=== PATIENT | female | born 1995 | race American Indian/Alaskan Native ===

== ENCOUNTER 2019-05-31 16:52 | Emergency (ER) | payer SELFPAY ==
--- NOTE | 2019-05-31 17:20 | Emergency Department Report ---
Blank Doc - Documentation Documentation: This is a 23-year-old female that presents with dysuria and pelvic pain. This initial assessment/diagnostic orders/clinical plan/treatment(s) is/are subject to change based on patient's health status, clinical progression and re- assessment by fellow clinical providers in the ED. Further treatment and workup at subsequent clinical providers discretion. Patient/guardians urged not to elope from the ED as their condition may be serious if not clinically assessed and managed. Initial orders include: 1- Patient sent to [facility] for further evaluation and treatment 2- UA
[2019-05-31 17:24] VITALS: BP 119/83
[2019-05-31 18:36] LABS: HCG Qualitative,Urine Negative (Negative)
[2019-05-31 18:43] LABS: Bilirubin,Urine NEG (Negative); Blood,Urine NEG (Negative); Color,Urine Straw (Yellow); Protein,Urine <15 mg/dL mg/dL (Negative); Urobilinogen,Urine < 2.0 mg/dL (<2.0)
[2019-05-31] MEDS ORDERED: ROCEPHIN IM ONE (19:56)
[2019-05-31] MEDS ORDERED: XYLOCAINE 1% MPF 5 mL INFILTRATI ONE (19:56)
[2019-05-31] MEDS ORDERED: TORADOL PO ONE (19:56)
[2019-05-31] MEDS ORDERED: ZOFRAN ODT PO ONE (19:57)
--- NOTE | 2019-05-31 20:23 | Emergency Department Report ---
ED Female HPI - General Chief complaint: Urogenital-Female Stated complaint: POSS KIDNEY INFECTION Time Seen by Provider: 05/31/19 17:19 Source: patient Mode of arrival: Ambulatory Limitations: No Limitations - History of Present Illness Initial comments: Patient is a A0 23-year-old female with chronic recurrent urinary tract infections presents to the ED with complaint of acute onset persistent dysuria, urinary frequency and urgency, hematuria, bilateral flank pain that radiates to the lower abdomen and nausea for the last 4 days. Patient denies fever, chills, vomiting, diarrhea, vaginal bleeding, vaginal discharge, dizziness, cough, chest pain or shortness of breath. Patient states that she has been taking [id number] medications with no relief. MD Complaint: dysuria, pelvic pain, other (Urinary urgency and frequency; bilateral flank pain) -: Sudden, days(s) (4) Location: suprapubic Radiation: suprapubic, L flank, R flank Severity: moderate Severity scale (0 -10): 6 Quality: cramping, sharp, aching Consistency: constant Improves with: none Worsens with: urination Are you Now?: No Last Menstrual Period: 05/25/19 EDC: 02/29/20 Associated Symptoms: denies other symptoms, abdominal pain, dysuria, hematuria. denies: vaginal discharge, vaginal bleeding, nausea/vomiting, fever/chills, headaches, loss of appetite, rash, seizure, shortness of breath, syncope, weakness, other - Related Data Sexually active: Yes : 2 Para: 2 A: 0 Previous Rx's Medication Instructions Recorded Last Taken Type Ibuprofen [Motrin] 400 mg PO Q8H PRN #20 tablet 05/31/19 Unknown Rx Ondansetron [Zofran Odt] 4 mg PO Q6HR PRN #15 tab.rapdis 05/31/19 Unknown Rx Sulfamethoxazole/Trimethoprim 1 each PO Q12H #20 tablet 05/31/19 Unknown Rx [Bactrim DS TAB] Allergies Allergy/AdvReac Type Severity Reaction Status Date / Time No Known Allergies Allergy Unverified 05/31/19 16:54 ED Review of Systems ROS: Stated complaint: POSS KIDNEY INFECTION Other details as noted in HPI Comment: All other systems reviewed and negative Constitutional: denies: chills, fever Eyes: denies: eye pain, eye discharge, vision change ENT: denies: ear pain, throat pain Respiratory: denies: cough, shortness of breath, wheezing Cardiovascular: denies: chest pain, palpitations Endocrine: no symptoms reported Gastrointestinal: abdominal pain (suprapubic and bilateral flank pains). denies: nausea, vomiting, diarrhea, constipation, hematemesis, hematochezia Genitourinary: urgency, dysuria, frequency, hematuria. denies: discharge, abnormal menses, dyspareunia Musculoskeletal: denies: back pain, joint swelling, arthralgia Skin: denies: rash, lesions Neurological: denies: headache, weakness, paresthesias Psychiatric: denies: anxiety, depression Hematological/Lymphatic: denies: easy bleeding, easy bruising ED Past Medical Hx - Past Medical History Previous Medical History?: No - Surgical History Past Surgical History?: No - Social History Smoking Status: Never Smoker Substance Use Type: None - Medications Home Medications: Home Medications Medication Instructions Recorded Confirmed Last Taken Type Ibuprofen [Motrin] 400 mg PO Q8H PRN #20 tablet 05/31/19 Unknown Rx Ondansetron [Zofran Odt] 4 mg PO Q6HR PRN #15 tab.rapdis 05/31/19 Unknown Rx Sulfamethoxazole/Trimethoprim 1 each PO Q12H #20 tablet 05/31/19 Unknown Rx [Bactrim DS TAB] ED Physical Exam - General Limitations: No Limitations General appearance: alert, in no apparent distress - Head Head exam: Present: atraumatic, normocephalic, normal inspection - Eye Eye exam: Present: normal appearance, PERRL, EOMI. Absent: scleral icterus, conjunctival injection, nystagmus, periorbital swelling, periorbital tenderness Pupils: Present: normal accommodation - ENT ENT exam: Present: normal exam, normal orophraynx, mucous membranes moist, TM's normal bilaterally, normal external ear exam - Neck Neck exam: Present: normal inspection, full ROM. Absent: tenderness, lymphadenopathy - Respiratory Respiratory exam: Present: normal lung sounds bilaterally. Absent: respiratory distress, wheezes, rales, stridor, chest wall tenderness, accessory muscle use, decreased breath sounds, prolonged expiratory - Cardiovascular Cardiovascular Exam: Present: regular rate, normal rhythm, normal heart sounds. Absent: systolic murmur, diastolic murmur, rubs, gallop - GI/Abdominal GI/Abdominal exam: Present: soft, tenderness (mildly tender suprapubic and bilateral flanks), normal bowel sounds. Absent: hyperactive bowel sounds, hypoactive bowel sounds, organomegaly, mass - Rectal Rectal exam: Present: deferred - Extremities Exam Extremities exam: Present: normal inspection, full ROM, normal capillary refill - Back Exam Back exam: Present: normal inspection, full ROM. Absent: tenderness, CVA tenderness (R), CVA tenderness (L), muscle spasm - Neurological Exam Neurological exam: Present: alert, oriented X3, CN II-XII intact, normal gait, reflexes normal - Psychiatric Psychiatric exam: Present: normal affect, normal mood - Skin Skin exam: Present: warm, dry, intact, normal color. Absent: rash ED Course Vital Signs 05/31/19 17:21 Temperature 98.5 F Pulse Rate 88 Respiratory 18 Rate Blood Pressure 119/83 O2 Sat by Pulse 100 Oximetry - Reevaluation(s) Reevaluation #1: 05/31/19 20:29 This is a 23-year-old female who presented to the ED with symptoms of dysuria, urinary frequency and urgency, hematuria and bilateral flank pain consistent with acute urinary tract infection. Patient is alert and oriented 3 and is not in distress with normal vital signs. Urinalysis shows acute urinary tract infection. The patient was treated in the ED Rocephin on pain medications, and discharged home on medications including antibiotics and pain medicines. Patient was advised to drink plenty of fluids and follow-up with [facility] [employer] physician or primary care physician in 7-10 days for reevaluation or return to the ED immediately if symptoms get worse. ED Medical Decision Making - Medical Decision Making This is a 23-year-old female who presented to the ED with symptoms of dysuria, urinary frequency and urgency, hematuria and bilateral flank pain consistent with acute urinary tract infection. Patient is alert and oriented 3 and is not in distress with normal vital signs. Urinalysis shows acute urinary tract infection. The patient was treated in the ED Rocephin on pain medications, and discharged home on medications including antibiotics and pain medicines. Patient was advised to drink plenty of fluids and follow-up with [facility] [employer] physician or primary care physician in 7-10 days for reevaluation or return to the ED immediately if symptoms get worse. - Differential Diagnosis Bilateral flank pains; Suprapubic pain; Acute UTI; Dysuria; Critical care attestation.: If time is entered above; I have spent that time in minutes in the direct care of this critically ill patient, excluding procedure time. ED Disposition Clinical Impression: Acute urinary tract infection, Bilateral flank pain Disposition: TO HOME OR SELFCARE Is pt being admited?: No Does the pt Need Aspirin: No Condition: Stable Instructions: Urinary Tract Infection in Women (ED), Flank Pain (ED) Additional Instructions: Take medications with food, drink plenty of fluids and follow-up with your primary care physician or [facility] physician in 7-10 days for reevaluation. Return to the ED immediately if symptoms get worse. Prescriptions: Sulfamethoxazole/Trimethoprim [Bactrim DS TAB] 1 each PO Q12H #20 tablet Ibuprofen [Motrin] 400 mg PO Q8H PRN #20 tablet PRN Reason: Pain , Severe (7-10) Ondansetron [Zofran Odt] 4 mg PO Q6HR PRN #15 tab.rapdis PRN Reason: Nausea Referrals: [facility] [Outside] - 3-5 Days Forms: Work/School Release Form(ED) Time of Disposition: 20:20 Print Language: MALTESE
== END 2019-05-31 20:45 | disposition home or self-care (01) ==
LOC: ED 16:52
DX: N39.0 Urinary tract infection, site not specified (principal)
CPT/HCPCS: 81001; 81025; 87086; 96372; 99283; J0696; Q0162

== ENCOUNTER 2022-03-09 03:15 | Emergency (ER) | payer MEDICAID ==
[2022-03-09] MEDS ORDERED: SODIUM CHLORIDE 0.9% 1000 ML 1,000 ML IV ONE (03:29)
[2022-03-09] MEDS ORDERED: methylPREDNISolone Sod Succinate 125 MG/2 ML INJ IV ONE (03:29)
[2022-03-09] MEDS ORDERED: diphenhydrAMINE 50 MG/ML VIAL IV ONE (03:29)
[2022-03-09] MEDS ORDERED: FAMOTIDINE 20 MG/2 ML INJ IV ONE (03:30)
[2022-03-09] MEDS ORDERED: EPINEPHrine/PF 1 MG/1 ML INJ IM STA ×2 (03:32→03:44)
[2022-03-09] MEDS ORDERED: EPINEPHrine RACEMIC 2.25% 0.5ML NEBU IH ONE ×2 (03:33→03:45)
--- NOTE | 2022-03-09 05:20 | Emergency Department Report ---
<DELTA BAILEY - Last Filed: 03/09/22 10:56> ED General Adult HPI - General Chief complaint: Allergic Reaction Stated complaint: ALLERGIC RX/LIP SWELLING Time Seen by Provider: 03/09/22 03:32 - Related Data Previous Rx's Medication Instructions Recorded Last Taken Type Ibuprofen [Motrin] 400 mg PO Q8H PRN #20 tablet 05/31/19 Unknown Rx Ondansetron [Zofran Odt] 4 mg PO Q6HR PRN #15 tab.rapdis 05/31/19 Unknown Rx Sulfamethoxazole/Trimethoprim 1 each PO Q12H #20 tablet 05/31/19 Unknown Rx [Bactrim DS TAB] EPINEPHrine [Epipen] 0.3 mg IJ ONCE PRN 1 Days #1 pack 03/09/22 Unknown Rx Loratadine 1 tab PO DAILY 5 Days #5 03/09/22 Unknown Rx predniSONE [Deltasone] 2 tab PO QDAY 5 Days #10 tab 03/09/22 Unknown Rx Allergies Allergy/AdvReac Type Severity Reaction Status Date / Time No Known Allergies Allergy Unverified 05/31/19 16:54 ED Past Medical Hx - Medications Home Medications: Home Medications Medication Instructions Recorded Confirmed Last Taken Type Ibuprofen [Motrin] 400 mg PO Q8H PRN #20 tablet 05/31/19 Unknown Rx Ondansetron [Zofran Odt] 4 mg PO Q6HR PRN #15 tab.rapdis 05/31/19 Unknown Rx Sulfamethoxazole/Trimethoprim 1 each PO Q12H #20 tablet 05/31/19 Unknown Rx [Bactrim DS TAB] EPINEPHrine [Epipen] 0.3 mg IJ ONCE PRN 1 Days #1 pack 03/09/22 Unknown Rx Loratadine 1 tab PO DAILY 5 Days #5 03/09/22 Unknown Rx predniSONE [Deltasone] 2 tab PO QDAY 5 Days #10 tab 03/09/22 Unknown Rx ED Medical Decision Making - Medical Decision Making Patient observed in the ER for approximately 6-hour after treatment. Patient stated that she is feeling much better. No lip swelling or tongue swelling. No oropharyngeal swelling. Patient denies any difficulty swallowing or difficulty breathing. No stridor. Patient advised to follow-up with her primary care physician in the next 2 to 3 days and to return to the ER if she develop any new symptoms. ED Disposition Clinical Impression: Angioedema Disposition: HOME / SELF CARE / HOMELESS Is pt being admited?: No Condition: Stable Instructions: Angioedema, [id number] Additional Instructions: Follow up with your regular doctor within 2-4 days. Return to the ER if your symptoms worsen Prescriptions: predniSONE [Deltasone] 2 tab PO QDAY 5 Days #10 tab EPINEPHrine [Epipen] 0.3 mg IJ ONCE PRN 1 Days #1 pack PRN Reason: Allergic Reaction Loratadine 1 tab PO DAILY 5 Days #5 Referrals: SADIE QUIROZ MD [Primary Care Provider] - 3-5 Days <SAMAN OLIVIA U - Last Filed: 03/11/22 20:02> ED General Adult HPI - General Source: patient Mode of arrival: Ambulatory Limitations: No Limitations - History of Present Illness Initial comments: patient presents with complaints of swelling in her lips and tongue since 10 pm. Endorses difficulty swallowing. Denies SOB, rash. Started after she ate some shrimp. does not have a known hx of allergy to shrimp. Severity scale (0 -10): 0 ED Review of Systems ROS: Stated complaint: ALLERGIC RX/LIP SWELLING Other details as noted in HPI Comment: All other systems reviewed and negative Constitutional: denies: chills, fever ED Past Medical Hx - Past Medical History Previous Medical History?: No - Surgical History Past Surgical History?: No - Social History Smoking Status: Never Smoker Substance Use Type: None ED Physical Exam - General Limitations: No Limitations General appearance: alert, in no apparent distress - Head Head exam: Present: atraumatic, normocephalic - Eye Eye exam: Present: PERRL, EOMI, other (no eyelid edema) - ENT ENT exam: Present: other (edema of lower lip, tongue and uvula) - Neck Neck exam: Present: other (supple; inspiratory stridor present) - Respiratory Respiratory exam: Present: other (good air entry, nml I:E, inspiratory stridor, no use of accessory muscles of respiration) - Cardiovascular Cardiovascular Exam: Present: regular rate. Absent: rubs, gallop - GI/Abdominal GI/Abdominal exam: Present: soft, normal bowel sounds. Absent: distended, tenderness - Extremities Exam Extremities exam: Present: full ROM. Absent: tenderness - Back Exam Back exam: Present: full ROM. Absent: tenderness - Neurological Exam Neurological exam: Present: alert, oriented X3, CN II-XII intact. Absent: motor sensory deficit - Skin Skin exam: Present: warm. Absent: rash ED Course Vital Signs 03/09/22 03/09/22 03/09/22 03:18 03:43 03:45 Temperature 99.1 F Pulse Rate 83 79 93 H Pulse Rate [ Anterior] Respiratory 18 12 14 Rate Respiratory Rate [Anterior] Blood Pressure 122/79 138/82 Blood Pressure [Right] O2 Sat by Pulse 100 100 Oximetry 03/09/22 03/09/22 03/09/22 03:47 03:51 03:59 Temperature Pulse Rate 85 Pulse Rate [ 94 H Anterior] Respiratory 16 Rate Respiratory 16 Rate [Anterior] Blood Pressure Blood Pressure 136/91 [Right] O2 Sat by Pulse 96 98 Oximetry 03/09/22 03/09/22 03/09/22 04:00 04:16 04:30 Temperature Pulse Rate 77 75 78 Pulse Rate [ Anterior] Respiratory 14 19 18 Rate Respiratory Rate [Anterior] Blood Pressure 136/91 136/91 126/81 Blood Pressure [Right] O2 Sat by Pulse 100 100 100 Oximetry 03/09/22 03/09/22 03/09/22 04:46 05:00 05:16 Temperature Pulse Rate 78 76 72 Pulse Rate [ Anterior] Respiratory 18 16 16 Rate Respiratory Rate [Anterior] Blood Pressure 126/81 132/77 132/77 Blood Pressure [Right] O2 Sat by Pulse 100 100 99 Oximetry 03/09/22 03/09/22 03/09/22 05:30 05:46 06:00 Temperature Pulse Rate 72 76 87 Pulse Rate [ Anterior] Respiratory 15 15 16 Rate Respiratory Rate [Anterior] Blood Pressure 120/87 120/87 117/76 Blood Pressure [Right] O2 Sat by Pulse 99 100 99 Oximetry 03/09/22 03/09/22 03/09/22 06:16 06:30 06:46 Temperature Pulse Rate 75 74 85 Pulse Rate [ Anterior] Respiratory 14 16 15 Rate Respiratory Rate [Anterior] Blood Pressure 117/76 115/80 115/80 Blood Pressure [Right] O2 Sat by Pulse 100 99 100 Oximetry 03/09/22 03/09/22 03/09/22 07:00 07:30 08:00 Temperature Pulse Rate 83 87 73 Pulse Rate [ Anterior] Respiratory 15 17 16 Rate Respiratory Rate [Anterior] Blood Pressure 113/80 118/78 122/84 Blood Pressure [Right] O2 Sat by Pulse 99 100 100 Oximetry 03/09/22 08:30 Temperature Pulse Rate 74 Pulse Rate [ Anterior] Respiratory 15 Rate Respiratory Rate [Anterior] Blood Pressure 127/76 Blood Pressure [Right] O2 Sat by Pulse 99 Oximetry ED Medical Decision Making - Medical Decision Making Received epi 0.3 mg IM x 2, racemic epi x 2, solumedrol 125 mg IV x 1, benadryl 50 mg IV x 1, famotidine 20 mg IV x 1 Lip swelling resolved. No tongue or posterior orpharyngeal edema 3 hours after meds. Lungs with good air entry, nml I:E, CTAB, no use of SARAH. Critical care attestation.: If time is entered above; I have spent that time in minutes in the direct care of this critically ill patient, excluding procedure time. ED Disposition Is pt being admited?: No Does the pt Need Aspirin: No
[2022-03-09 11:38] VITALS: BP 127/76
== END 2022-03-09 08:00 | disposition home or self-care (01) ==
LOC: ED 03:15
DX: T78.1XXA Other adverse food reactions, not elsewhere classified, initial encounter (principal); R22.9 Localized swelling, mass and lump, unspecified; X58.XXXA Exposure to other specified factors, initial encounter
CPT/HCPCS: 94640; 96361; 96372; 96374; 96375; 99283; J0171; J1200; J2930; J3490; J7030; 94644

== ENCOUNTER 2022-04-26 01:44 | Emergency (ER) | payer MEDICAID ==
[2022-04-26] MEDS ORDERED: EPINEPHrine/PF 1 MG/1 ML INJ SUB-Q ONE (02:00)
[2022-04-26] MEDS ORDERED: SODIUM CHLORIDE 0.9% 1000 ML 1,000 ML IV ONE (02:00)
[2022-04-26] MEDS ORDERED: methylPREDNISolone Sod Succinate 125 MG/2 ML INJ IV STA (02:00)
[2022-04-26] MEDS ORDERED: FAMOTIDINE 20 MG/2 ML INJ IV ONE (02:00)
[2022-04-26] MEDS ORDERED: diphenhydrAMINE 50 MG/ML VIAL IV ONE (02:00)
--- NOTE | 2022-04-26 02:02 | Emergency Department Report ---
HPI - General Chief Complaint: Allergic Reaction Time Seen by Provider: 04/26/22 02:00 - HPI HPI: See THE other dictation ED Past Medical Hx - Social History Smoking Status: Never Smoker Substance Use Type: None - Medications Home Medications: Home Medications Medication Instructions Recorded Confirmed Last Taken Type Ibuprofen [Motrin] 400 mg PO Q8H PRN #20 tablet 05/31/19 Unknown Rx Ondansetron [Zofran Odt] 4 mg PO Q6HR PRN #15 tab.rapdis 05/31/19 Unknown Rx Sulfamethoxazole/Trimethoprim 1 each PO Q12H #20 tablet 05/31/19 Unknown Rx [Bactrim DS TAB] EPINEPHrine [Epipen] 0.3 mg IJ ONCE PRN 1 Days #1 pack 03/09/22 Unknown Rx Loratadine 1 tab PO DAILY 5 Days #5 03/09/22 Unknown Rx predniSONE [Deltasone] 2 tab PO QDAY 5 Days #10 tab 03/09/22 Unknown Rx Albuterol Mdi (or & Nicu Only) 2 puff IH QID PRN #1 inhalation 04/26/22 Unknown Rx [ProAir HFA Inhaler] EPINEPHrine [Epipen 2-Kenrick] 0.3 mg IM ONCE #2 pen 04/26/22 Unknown Rx hydrOXYzine HCL [Atarax] 25 mg PO Q6HR PRN #20 tablet 04/26/22 Unknown Rx predniSONE [Deltasone] 50 mg PO QDAY #5 tab 04/26/22 Unknown Rx ED Review of Systems ROS: Stated complaint: ALLERGIC REACTION Other details as noted in HPI Physical Exam - Physical Exam Vital Signs: Vital Signs 04/26/22 01:47 Temperature 98.0 F Pulse Rate 77 Respiratory 18 Rate Blood Pressure 127/77 O2 Sat by Pulse 99 Oximetry ED Course Vital Signs 04/26/22 01:47 Temperature 98.0 F Pulse Rate 77 Respiratory 18 Rate Blood Pressure 127/77 O2 Sat by Pulse 99 Oximetry Critical care attestation.: If time is entered above; I have spent that time in minutes in the direct care of this critically ill patient, excluding procedure time. ED Disposition Clinical Impression: Allergic reaction, Angio-edema Disposition: 01 HOME / SELF CARE / HOMELESS Is pt being admited?: No Does the pt Need Aspirin: No Condition: Stable Instructions: Angioedema, [id number], Angioedema, How to Use an Auto-Injector Pen Additional Instructions: Please be sure to follow-up with an residential life director as we discussed can be tested to follow-up on these frequent recurrent allergy reactions you have been experiencing Prescriptions: hydrOXYzine HCL [Atarax] 25 mg PO Q6HR PRN #20 tablet PRN Reason: Itching predniSONE [Deltasone] 50 mg PO QDAY #5 tab EPINEPHrine [Epipen 2-Kenrick] 0.3 mg IM ONCE #2 pen Albuterol Mdi (or & Nicu Only) [ProAir HFA Inhaler] 2 puff IH QID PRN #1 inhalation PRN Reason: Shortness Of Breath Referrals: SADIE QUIROZ MD [Primary Care Provider] - 3-5 Days
--- NOTE | 2022-04-26 02:03 | Emergency Department Report ---
ED Allergic Reaction HPI - General Chief complaint: Allergic Reaction Stated complaint: ALLERGIC REACTION Time Seen by Provider: 04/26/22 02:00 Source: patient Mode of arrival: Ambulatory Limitations: No Limitations - History of Present Illness MD Complaint: allergic reaction, hives -: Sudden, hour(s) (2 after eating a [employer] steak meal preapacked) Severity: moderate Treatment Prior to Arrival: none Previous Allergy History: prior ED visit(s), angioedema - Related Data Previous Rx's Medication Instructions Recorded Last Taken Type Ibuprofen [Motrin] 400 mg PO Q8H PRN #20 tablet 05/31/19 Unknown Rx Ondansetron [Zofran Odt] 4 mg PO Q6HR PRN #15 tab.rapdis 05/31/19 Unknown Rx Sulfamethoxazole/Trimethoprim 1 each PO Q12H #20 tablet 05/31/19 Unknown Rx [Bactrim DS TAB] EPINEPHrine [Epipen] 0.3 mg IJ ONCE PRN 1 Days #1 pack 03/09/22 Unknown Rx Loratadine 1 tab PO DAILY 5 Days #5 03/09/22 Unknown Rx predniSONE [Deltasone] 2 tab PO QDAY 5 Days #10 tab 03/09/22 Unknown Rx Albuterol Mdi (or & Nicu Only) 2 puff IH QID PRN #1 inhalation 04/26/22 Unknown Rx [ProAir HFA Inhaler] EPINEPHrine [Epipen 2-Kenrick] 0.3 mg IM ONCE #2 pen 04/26/22 Unknown Rx hydrOXYzine HCL [Atarax] 25 mg PO Q6HR PRN #20 tablet 04/26/22 Unknown Rx predniSONE [Deltasone] 50 mg PO QDAY #5 tab 04/26/22 Unknown Rx Allergies Allergy/AdvReac Type Severity Reaction Status Date / Time No Known Allergies Allergy Unverified 05/31/19 16:54 ED Review of Systems ROS: Stated complaint: ALLERGIC REACTION Other details as noted in HPI Comment: All other systems reviewed and negative ED Past Medical Hx - Social History Smoking Status: Never Smoker Substance Use Type: None - Medications Home Medications: Home Medications Medication Instructions Recorded Confirmed Last Taken Type Ibuprofen [Motrin] 400 mg PO Q8H PRN #20 tablet 05/31/19 Unknown Rx Ondansetron [Zofran Odt] 4 mg PO Q6HR PRN #15 tab.rapdis 05/31/19 Unknown Rx Sulfamethoxazole/Trimethoprim 1 each PO Q12H #20 tablet 05/31/19 Unknown Rx [Bactrim DS TAB] EPINEPHrine [Epipen] 0.3 mg IJ ONCE PRN 1 Days #1 pack 03/09/22 Unknown Rx Loratadine 1 tab PO DAILY 5 Days #5 03/09/22 Unknown Rx predniSONE [Deltasone] 2 tab PO QDAY 5 Days #10 tab 03/09/22 Unknown Rx Albuterol Mdi (or & Nicu Only) 2 puff IH QID PRN #1 inhalation 04/26/22 Unknown Rx [ProAir HFA Inhaler] EPINEPHrine [Epipen 2-Kenrick] 0.3 mg IM ONCE #2 pen 04/26/22 Unknown Rx hydrOXYzine HCL [Atarax] 25 mg PO Q6HR PRN #20 tablet 04/26/22 Unknown Rx predniSONE [Deltasone] 50 mg PO QDAY #5 tab 04/26/22 Unknown Rx ED Physical Exam - General Limitations: No Limitations General appearance: alert, in no apparent distress - Head Head exam: Present: atraumatic, normocephalic - Eye Eye exam: Present: normal appearance, PERRL, EOMI - ENT ENT exam: Present: normal exam, mucous membranes moist, TM's normal bilaterally, other (Swelling to the lips. Tongue appears to be of normal variant no droo ling. Voice appears to be normal no stridor) - Neck Neck exam: Present: normal inspection, full ROM, other (swelling noted with lip swelling and ) - Respiratory Respiratory exam: Present: normal lung sounds bilaterally. Absent: respiratory distress, wheezes, rales, rhonchi - Cardiovascular Cardiovascular Exam: Present: regular rate, normal rhythm. Absent: systolic murmur, diastolic murmur, rubs, gallop - GI/Abdominal GI/Abdominal exam: Present: soft, normal bowel sounds - Extremities Exam Extremities exam: Present: normal inspection - Back Exam Back exam: Present: normal inspection - Neurological Exam Neurological exam: Present: alert, oriented X3 - Psychiatric Psychiatric exam: Present: normal affect, normal mood - Skin Skin exam: Present: warm, dry, intact, normal color. Absent: rash ED Course Vital Signs 04/26/22 04/26/22 04/26/22 01:47 02:24 02:30 Temperature 98.0 F Pulse Rate 77 Respiratory 18 Rate Blood Pressure 127/77 127/80 Blood Pressure [Left] O2 Sat by Pulse 99 100 100 Oximetry 04/26/22 04/26/22 04/26/22 02:46 03:00 05:18 Temperature Pulse Rate Respiratory Rate Blood Pressure 127/80 106/66 108/69 Blood Pressure [Left] O2 Sat by Pulse 100 90 100 Oximetry 04/26/22 04/26/22 04/26/22 05:20 05:30 06:00 Temperature Pulse Rate 74 Respiratory 12 Rate Blood Pressure 108/69 107/68 Blood Pressure 108/69 [Left] O2 Sat by Pulse 100 99 99 Oximetry ED Medical Decision Making - Medical Decision Making This patient presents with symptoms consistent with acute hypersensitivity reaction, likely acute allergic reaction. Presentation not consistent with acute anaphylaxis (lack of pulmonary, dermatologic, cardiovascular or GI symptoms, lack of hypotension or exposure to known allergen), angioedema, serum sickness(no recent drug exposure, lack of fevers, arthralgias), ingestion of preformed toxin. No evidence of airway compromise or shock at this time. Plan to treat for allergic reaction with H2/H1 blockers, steroids. No indication for epinephrine at this time. Plan Critical care attestation.: If time is entered above; I have spent that time in minutes in the direct care of this critically ill patient, excluding procedure time. ED Disposition Clinical Impression: Allergic reaction, Angio-edema Disposition: 01 HOME / SELF CARE / HOMELESS Is pt being admited?: No Does the pt Need Aspirin: No Condition: Stable Instructions: Angioedema, [id number], Angioedema, How to Use an Auto-Injector Pen Additional Instructions: Please be sure to follow-up with an die cast engineer as we discussed can be tested to follow-up on these frequent recurrent allergy reactions you have been experiencing Prescriptions: hydrOXYzine HCL [Atarax] 25 mg PO Q6HR PRN #20 tablet PRN Reason: Itching predniSONE [Deltasone] 50 mg PO QDAY #5 tab EPINEPHrine [Epipen 2-Kenrick] 0.3 mg IM ONCE #2 pen Albuterol Mdi (or & Nicu Only) [ProAir HFA Inhaler] 2 puff IH QID PRN #1 inhalation PRN Reason: Shortness Of Breath Referrals: SADIE QUIROZ MD [Primary Care Provider] - 3-5 Days
[2022-04-26 07:00] VITALS: BP 102/67
== END 2022-04-26 07:00 | disposition home or self-care (01) ==
LOC: ED 01:44
DX: T78.40XA Allergy, unspecified, initial encounter (principal); X58.XXXA Exposure to other specified factors, initial encounter; T78.3XXA Angioneurotic edema, initial encounter
CPT/HCPCS: 96361; 96372; 96374; 96375; 99282; J0171; J1200; J2930; J3490; J7030